=== PATIENT | female | born 1980 | race Caucasian/White ===

== ENCOUNTER → 2016-10-31 | Outpatient (CLI) | payer BC ==
--- NOTE | 2016-11-01 06:47 | CONS ---
DATE OF CONSULTATION: PCP is Dr. Yee. Psychiatrist is Dr. Mckenna. Reason for the evaluation is chronic sleepiness. This is a 36-year-old female patient coming in for complaints of sleepiness for the past couple of years. This sleep evaluation was suggested to her by a couple of doctors and recently she was seeing a psychiatrist Dr. Mckenna who referred this patient to sleep center to be investigated further. The patient has chronic depression and she has been on citalopram 20 mg p.o. q. day. She goes to bed around 10 p.m. wakes up at 6:30 a.m. in the morning. She snores and she is excessively fatigued and sleepy during the day. Her Glasgow is currently at 6. She can fall asleep at any time easily and typically takes a few minutes to fall asleep. She naps at least 2 to 3 hours in the afternoon after lunch. She is a stay at home mom. She has grinding of the teeth and she has grinding of her teeth extensively and she is not using any form of dental protection or bite guard. As such, she has history of bruxism. PAST MEDICAL HISTORY: Obesity bruxism, hypertension, depression, hyperlipidemia. SURGICAL HISTORY: Tubal ligation. Drug allergies are not known. Outpatient medication list includes: Citalopram, Lipitor and losartan. SOCIAL HISTORY: Nonsmoker. No history of alcoholism. No history of IV drugs. FAMILY HISTORY: Noncontributory. REVIEW OF SYSTEMS: Twelve-point review of systems was done. Positive findings were all mentioned above in the history of present illness. BP is 122/76, pulse is 79, respirations 18, temperature 99.9, saturation 98% on room air. Glasgow score is at 6. Neck size is 16-1/2. BMI is 42.3. GENERAL APPEARANCE: Calm, comfortable, obese. HEENT: Short neck. Crowding of posterior pharynx. There is no goiter or neck masses. LUNGS: Diminished breath sounds bilaterally otherwise clear. HEART: Sounds are distant, regular rate and rhythm. Normal S1, S2. ABDOMEN: Soft, nontender. No organomegaly. EXTREMITIES: No edema. No cyanosis or clubbing. IMPRESSIONS: 1. Chronic hypersomnia under investigation, rule out obstructive sleep apnea. 2. Obesity; body mass index of 42. 3. Bruxism. 4. Hypertension. 5. Depression. 6. Hyperlipidemia. PLAN: 1. Weight loss. 2. Encourage using a bite guard regarding her bruxism. 3. Proceed with a screening polysomnogram investigating this patient for obstructive sleep apnea. 4. Depression, treatment through Dr. Mckenna. 5. Will continue to follow.
== END ==
LOC: SLEEP 13:20
PROVIDERS: ATTEND Internal Medicine Critical Care Medicine
DX: G47.10 Hypersomnia, unspecified (principal); E66.9 Obesity, unspecified; I10 Essential (primary) hypertension; E78.5 Hyperlipidemia, unspecified; F32.9 Major depressive disorder, single episode, unspecified; G47.63 Sleep related bruxism; Z68.41 Body mass index [BMI] 40.0-44.9, adult
CPT/HCPCS: 99211

== ENCOUNTER → 2018-12-02 | Outpatient (CLI) | payer BC ==
--- NOTE | 2018-12-02 10:14 | MM ---
Reason for exam: screening (asymptomatic). Baseline mammogram. History: Family history of breast cancer in maternal grandmother at age 76. Physical Findings: Nurse did not find any significant physical abnormalities on exam. MG 3D Screening Mammo W/Cad Bilateral CC and MLO view(s) were taken. The breast tissue is heterogeneously dense. This may lower the sensitivity of mammography. Asymmetric density anterior left MLO view disperses on 3D. Diffuse round and punctate calcifications. Central and lateral nodularity middle and posterior depth respectively, persists on 3D. However, no clear correlate on MLO. Ultrasound recommended. These results were verbally communicated with the patient and result sheet given to the patient on 12/02/18. ASSESSMENT: Incomplete: need additional imaging evaluation, BI-RAD 0 RECOMMENDATION: Ultrasound of the right breast.
--- NOTE | 2018-12-02 10:17 | USB ---
Reason for exam: additional evaluation requested from abnormal screening. History: Family history of breast cancer in maternal grandmother at age 76. Physical Findings: Breast exam preformed at baseline screening. US Breast Workup RT Right complete breast ultrasound includes all four quadrants, the retroareolar region and axilla. Finding demonstrates a 3 x 2mm hypoechoic lesion at the axilla near redness involving the skin. Findings suggest a dermal lesion such as a tiny sebaceous cyst. No other solid or cystic lesion seen. These results were verbally communicated with the patient and result sheet given to the patient on 12/02/18. ASSESSMENT: Probably benign, BI-RAD 3 RECOMMENDATION: Follow-up diagnostic mammogram of the right breast in 6 months. Manage on a clinical basis with regard to skin lesion, possible inflammed sebaceous cyst right axilla.
== END | disposition home or self-care (01) ==
LOC: RADMAMWWP 08:11
PROVIDERS: ATTEND Obstetrics & Gynecology
DX: Z12.31 Encounter for screening mammogram for malignant neoplasm of breast (principal); R92.8 Other abnormal and inconclusive findings on diagnostic imaging of breast
CPT/HCPCS: 77063; 77067

== ENCOUNTER → 2019-06-11 | Outpatient (CLI) | payer BC ==
--- NOTE | 2019-06-11 14:46 | MM ---
Reason for exam: follow-up at short interval from prior study. Last mammogram was performed 6 months ago. History: Family history of breast cancer in maternal grandmother at age 76. Physical Findings: Nurse did not find any significant physical abnormalities on exam. MG 3D Diag Mammo W/Cad RT Spot compression CC and LM view(s) were taken of the right breast. Prior study comparison: December 02, 2018, bilateral MG 3d screening mammo w/cad. The breast tissue is heterogeneously dense. This may lower the sensitivity of mammography. Benign appearing calcifications in the right breast. Lateral right asymmetry 15cm from nipple persists on spot views. Dense tissue superiorly. Fatty tissue inferiorly. Upper outer quadrant ultrasound will be performed. These results were verbally communicated with the patient and result sheet given to the patient on 06/11/19. ASSESSMENT: Incomplete: need additional imaging evaluation, BI-RAD 0 RECOMMENDATION: Ultrasound of the right breast. (upper outer quadrant) Patient will come at another time for breast ultrasound.
== END | disposition home or self-care (01) ==
LOC: RADMAMWWP 12:55
PROVIDERS: ATTEND Obstetrics & Gynecology
DX: R92.8 Other abnormal and inconclusive findings on diagnostic imaging of breast (principal)
CPT/HCPCS: 77061; 77065

== ENCOUNTER → 2019-06-12 | Outpatient (CLI) | payer BC ==
--- NOTE | 2019-06-12 09:24 | USB ---
Reason for exam: additional evaluation requested from abnormal screening. History: Family history of breast cancer in maternal grandmother at age 76. US Breast Workup Limited RT Right limited breast ultrasound including focal area of concern, retroareolar and axilla demonstrates no cystic or solid lesion seen. These results were verbally communicated with the patient and result sheet given to the patient on 06/12/19. ASSESSMENT: Probably benign, BI-RAD 3 RECOMMENDATION: Follow-up diagnostic mammogram of the right breast in 6 months.
== END | disposition home or self-care (01) ==
LOC: RADUSWWP 08:06
PROVIDERS: ATTEND Obstetrics & Gynecology
DX: R92.8 Other abnormal and inconclusive findings on diagnostic imaging of breast (principal)

== ENCOUNTER → 2020-03-23 | Outpatient (CLI) | payer BC ==
--- NOTE | 2020-03-23 10:02 | MM ---
Reason for exam: additional evaluation requested from prior study. Last mammogram was performed 9 months ago. History: Family history of breast cancer in paternal aunt at age 60 and breast cancer in maternal grandmother at age 76. Took hormonal contraceptives beginning at age 22. Physical Findings: Nurse did not find any significant physical abnormalities on exam. MG 3D Diag Mammo W/Cad KATER[facility] Bilateral CC and MLO view(s) were taken. Prior study comparison: December 02, 2018, bilateral MG 3d screening mammo w/cad. The breast tissue is heterogeneously dense. This may lower the sensitivity of mammography. Finding: There are typically benign round, linear, diffuse/scattered and regional calcifications in both breasts. There is no discrete abnormality. These results were verbally communicated with the patient and result sheet given to the patient on 03/23/20. ASSESSMENT: Benign, BI-RAD 2 RECOMMENDATION: Routine screening mammogram of both breasts in 1 year.
== END | disposition home or self-care (01) ==
LOC: RADMAMWWP 09:01
PROVIDERS: ATTEND Obstetrics & Gynecology
DX: R92.8 Other abnormal and inconclusive findings on diagnostic imaging of breast (principal)
CPT/HCPCS: 77062; 77066

== ENCOUNTER → 2021-04-28 | Outpatient (CLI) | payer BC ==
--- NOTE | 2021-04-29 11:39 | MM ---
Reason for exam: screening (asymptomatic). Last mammogram was performed 1 year and 1 month ago. History: Family history of breast cancer in maternal grandmother at age 76. Took hormonal contraceptives for 9 years beginning at age 22. Taking estrogen. Taking progesterone. Physical Findings: A clinical breast exam by your physician is recommended on an annual basis and results should be correlated with mammographic findings. MG 3D Screening Mammo W/Cad Bilateral CC, MLO, and XCCL view(s) were taken. Prior study comparison: March 23, 2020, bilateral MG 3d diag mammo w/cad [facility]. June 11, 2019, right breast MG 3d diag mammo w/cad RT. Benign appearing bilateral calcifications. There are grouped calcifications in the right upper outer quadrant. ASSESSMENT: Incomplete: need additional imaging evaluation, BI-RAD 0 RECOMMENDATION: Special view mammogram of the right breast. [facility] will attempt to contact patient to return for supplemental views.
== END | disposition home or self-care (01) ==
LOC: RADMAMWWP 09:15
PROVIDERS: ATTEND Obstetrics & Gynecology
DX: Z12.31 Encounter for screening mammogram for malignant neoplasm of breast (principal); Z80.3 Family history of malignant neoplasm of breast
CPT/HCPCS: 77063; 77067

== ENCOUNTER → 2021-05-02 | Outpatient (CLI) | payer BC ==
--- NOTE | 2021-05-03 13:33 | MM ---
Reason for exam: additional evaluation requested from abnormal screening. Last mammogram was performed less than 1 month ago. History: Family history of breast cancer in maternal grandmother at age 76. Took hormonal contraceptives for 1 year. Taking estrogen for 8 months. Taking progesterone for 8 months. Physical Findings: Nurse did not find any significant physical abnormalities on exam. MG 3D Work Up W/Cad RT CC with magnification, ML with magnification, and ML view(s) were taken of the right breast. Prior study comparison: April 28, 2021, bilateral MG 3d screening mammo w/cad. March 23, 2020, bilateral MG 3d diag mammo w/cad [facility]. No significant new findings when compared with previous films. These results were verbally communicated with the patient and result sheet given to the patient on 05/02/21. ASSESSMENT: Benign, BI-RAD 2 RECOMMENDATION: Return to routine screening mammogram schedule for both breasts.
== END | disposition home or self-care (01) ==
LOC: RADMAMWWP 08:13
PROVIDERS: ATTEND Obstetrics & Gynecology
DX: R92.8 Other abnormal and inconclusive findings on diagnostic imaging of breast (principal); Z80.3 Family history of malignant neoplasm of breast
CPT/HCPCS: 77061; 77065

== ENCOUNTER → 2021-08-22 | Outpatient (CLI) | payer BC ==
--- NOTE | 2021-08-22 11:25 | ECHOF ---
Referral Reason:R94.31 MEASUREMENTS -------- HEIGHT: 160.0 cm WEIGHT: 108.9 kg BP: RVIDd: 2.9 cm (< 3.3) IVSd: 1.1 cm (0.6 - 1.1) LVIDd: 3.1 cm (3.9 - 5.3) LVPWd: 1.3 cm (0.6 - 1.1) IVSs: 1.7 cm LVIDs: 2.1 cm LVPWs: 1.9 cm Ao Diam: 2.5 cm (2.0 - 3.7) AV Cusp: 1.9 cm (1.5 - 2.6) LA Diam: 3.8 cm (2.7 - 3.8) MV EXCURSION: 8.330 mm (> 18.000) MV EF SLOPE: 36 mm/s (70 - 150) EPSS: 1.1 cm MV E Jace: 0.97 m/s MV DecT: 205 ms MV A Jace: 0.81 m/s MV E/A Ratio: 1.20 RAP: 5.00 mmHg RVSP: 12.99 mmHg FINDINGS -------- This was a technically adequate study. The left ventricular size is normal. Left ventricular wall thickness is normal. Overall left vent ricular systolic function is low-normal with, an EF between 50 - 55 %. The right ventricle is normal in size. The left atrial size is normal. The right atrial size is normal. The aortic valve is trileaflet and appears structurally normal. The mitral valve is normal. There is trace mitral regurgitation. The tricuspid valve appears structurally normal. Trace tricuspid regurgitation present. Right jesse tricular systolic pressure is normal at < 35 mmHg. There is no pulmonic regurgitation present. The aortic root size is normal. IVC Not well visulized. There is no pericardial effusion. CONCLUSIONS -------- 1. The left ventricular size is normal. 2. Left ventricular wall thickness is normal. 3. Overall left ventricular systolic function is low-normal with, an EF between 50 - 55 %. 4. There is trace mitral regurgitation. 5. Trace tricuspid regurgitation present. 6. There is no pericardial effusion. DERMATOLOGIST: Patricia Patel RDCS
== END | disposition home or self-care (01) ==
LOC: RADECHMAIN 08:05
PROVIDERS: ATTEND Family Medicine
DX: I08.1 Rheumatic disorders of both mitral and tricuspid valves (principal)
CPT/HCPCS: 93306

== ENCOUNTER → 2023-11-16 | Outpatient (CLI) | payer BC ==
--- NOTE | 2023-11-19 08:35 | MM ---
Reason for Exam: Screening (asymptomatic). Last mammogram was performed 1 year(s) and 1 month(s) ago. Patient History: Menarche at age 9. First Full-Term at age 26. Currently using Estrogen, starting at age 40. Currently using Progesterone, starting at age 40. Hormonal Contraceptives for 1 year until age 31. Maternal grandmother had breast cancer, age 76. Risk Values: Pema 5 year model risk: 0.9%. NCI Lifetime model risk: 11.7%. Prior Study Comparison: 04/28/2021 Bilateral Screening Mammogram, [facility]. 05/02/2021 Right Diagnostic Mammogram, [facility]. 09/28/2022 Bilateral MG 3D screening mammo w/cad, [facility]. Tissue Density: The breasts are heterogeneously dense, which may obscure small masses. Findings: Analyzed By CAD. Right breast: There is no suspicious group of microcalcifications or new suspicious mass. Left breast: There is no suspicious group of microcalcifications or new suspicious mass. Overall Assessment: Negative, BI-RAD 1 Management: Screening Mammogram of both breasts in [address] [facility] will attempt to contact patient to return for supplemental views and ultrasound if indicated. Patient should continue monthly self-breast exams. A clinical breast exam by your physician is recommended on an annual basis. This exam should not preclude additional follow-up of suspicious palpable abnormalities. Note on Pema scores and lifetime risk: 1. A Pema score greater than 3% is considered moderate risk. If this is the case, consider specialist referral to assess eligibility for a risk reducing agent. 2. If overall lifetime risk for the development of breast cancer is 20% or higher, the patient may qualify for future screening with alternating mammogram and breast MRI. Electronically signed and approved by: Gal Pascal DO
== END | disposition home or self-care (01) ==
LOC: RADMAMWWP 10:59
PROVIDERS: ATTEND Obstetrics & Gynecology
DX: Z12.31 Encounter for screening mammogram for malignant neoplasm of breast (principal); Z80.3 Family history of malignant neoplasm of breast
CPT/HCPCS: 77063; 77067

== ENCOUNTER 2025-02-01 15:10 | Emergency (ER) | payer BC ==
--- NOTE | 2025-02-01 16:44 | ED ---
Skin/Abscess/FB HPI - General Chief complaint: Skin/Abscess/Foreign Body Stated complaint: Lump on L sided chest Time Seen by Provider: 02/01/25 16:36 Source: patient, RN notes reviewed Mode of arrival: ambulatory Limitations: no limitations - History of Present Illness Initial comments: 44-year-old female sent from urgent care for swollen lymph node in the left chest x 1 day. States she woke up yesterday and noticed the lump above her collarbone. States it is the size of a ping-pong ball. Endorses mild tenderness to the touch. Denies sore throat, difficulty breathing or swallowing, chest pain, shortness of breath, abdominal pain, fevers. States at urgent care they diagnosed her with Virchow's node and sent her to the ER for further evaluation. Patient states she has a history of hypertension and high cholesterol. No other significant medical history. - Related Data Home Medications Medication Instructions Recorded Confirmed FLUoxetine HCL [PROzac] 40 mg PO DAILY 02/02/15 02/02/15 clonazePAM [KlonoPIN] 0.5 mg PO HS 02/02/15 02/02/15 Previous Rx's Medication Instructions Recorded FLUoxetine HCL [PROzac] 40 mg PO DAILY cap 02/04/15 clonazePAM [KlonoPIN] 0.5 mg PO HS tab 02/04/15 Allergies Allergy/AdvReac Type Severity Reaction Status Date / Time No Known Allergies Allergy Verified 02/01/25 15:15 Review of Systems ROS Statement: Those systems with pertinent positive or pertinent negative responses have been documented in the HPI. ROS Other: All systems not noted in ROS Statement are negative. Past Medical History Past Medical History: No Reported History Additional Past Medical History / Comment(s): Right hip bursitis History of Any Multi-Drug Resistant Organisms: None Reported Past Surgical History: Tonsillectomy, Tubal Ligation Additional Past Surgical History / Comment(s): tubal ligation 2012, ingrown toenail removal Past Anesthesia/Blood Transfusion Reactions: No Reported Reaction Past Psychological History: Anxiety, Depression Smoking Status: Never smoker Past Alcohol Use History: None Reported Past Drug Use History: None Reported - Past Family History Father Additional Family Medical History / Comment(s): Dad is age 56 with history of gout and alcoholism. Patient does not know him very well. mother is age 53 had early hysterectomy for dysfunctional uterine bleeding General Exam Limitations: no limitations General appearance: alert, in no apparent distress Head exam: Present: atraumatic, normocephalic, normal inspection Eye exam: Present: normal appearance, PERRL, EOMI. Absent: scleral icterus, conjunctival injection, periorbital swelling ENT exam: Present: normal exam, mucous membranes moist Neck exam: Present: lymphadenopathy (Enlarged, ping-pong ball sized left sided supraclavicular lymph node with no overlying skin changes, mild tenderness to palpation). Absent: normal inspection, tenderness, meningismus Respiratory exam: Present: normal lung sounds bilaterally. Absent: respiratory distress, wheezes, rales, rhonchi, stridor Cardiovascular Exam: Present: regular rate, normal rhythm, normal heart sounds. Absent: systolic murmur, diastolic murmur, rubs, gallop, clicks GI/Abdominal exam: Present: soft, normal bowel sounds. Absent: distended, tenderness, guarding, rebound, rigid Neurological exam: Present: alert, oriented X3 Psychiatric exam: Present: normal affect, normal mood Skin exam: Present: warm, dry, intact, normal color. Absent: rash Course Vital Signs 02/01/25 02/01/25 15:12 19:17 Temperature 98.7 F 98.5 F Pulse Rate 99 84 Respiratory 18 16 Rate Blood Pressure 164/101 135/75 O2 Sat by Pulse 98 97 Oximetry Medical Decision Making - Medical Decision Making Was pt. sent in by a medical professional or institution ([facility], [employer], urgent care, hospital, or half-way...) When possible be specific @ -Sent from [facility] urgent care for further evaluation regarding Virchow node Did you speak to anyone other than the patient for history (EMS, parent, family, police, friend...)? What history was obtained from this source @ -No Did you review nursing and triage notes (agree or disagree)? Why? @ -I reviewed and agree with nursing and triage notes Were old charts reviewed (outside hosp., previous admission, EMS record, old EKG, old radiological studies, urgent care reports/EKG's, half-way records)? Report findings @ -No old charts were reviewed Differential Diagnosis (chest pain, altered mental status, abdominal pain women, abdominal pain men, vaginal bleeding, weakness, fever, dyspnea, syncope, headache, dizziness, GI bleed, back pain, seizure, CVA, palpatations, mental health, musculoskeletal)? @ -Virchow node, lymphadenopathy, viral infection, bacterial infection EKG interpreted by me (3pts min.). @ -None X-rays interpreted by me (1pt min.). @ -None done CT interpreted by me (1pt min.). @ -CT neck and chest shows soft tissue left lower neck area of palpable abnormality measuring 30 x 15 x 24 cm. Indeterminate lesion in the liver U/S interpreted by me (1pt. min.). @ -None done What testing was considered but not performed or refused? (CT, X-rays, U/S, labs)? Why? @ -None What meds were considered but not given or refused? Why? @ -None Did you discuss the management of the patient with other professionals (professionals i.e. , PA, [employer], lab, RT, psych nurse, socially responsible investment adviser, supervisor phosphatic fertilizer, teacher, staff electronic warfare officer, case management coordinator)? Give summary @ -No Was smoking cessation discussed for >3mins.? @ -No Was critical care preformed (if so, how long)? @ -No Were there social determinants of health that impacted care today? How? (Homelessness, low income, unemployed, alcoholism, drug addiction, transpo rtation, low edu. Level, literacy, decrease access to med. care, shelter, rehab)? @ -No Was there de-escalation of care discussed even if they declined (Discuss DNR or withdrawal of care, Hospice)? DNR status @ -No What co-morbidities impacted this encounter? (DM, HTN, Smoking, COPD, CAD, Cancer, CVA, ARF, Chemo, Hep., AIDS, mental health diagnosis, sleep apnea, morbid obesity)? @ -None Was patient admitted / discharged? Hospital course, mention meds given and route, prescriptions, significant lab abnormalities, going to OR and other pertinent info. @ -Discharge. 44-year-old female sent from urgent care for virchow node x 1 day. There is a left-sided palpable supraclavicular mass on examination. Lab work largely unremarkable. CT neck and chest shows soft tissue left lower neck area of palpable abnormality measuring 30 x 15 x 24 cm with indeterminate lesion in the liver. Discussed findings with patient. Discussed virchow node is a finding that is highly suspicious for malignant carcinoma and patient must follow-up for further testing of the lymph node including biopsy. Advised to follow-up with Dr. Yee tomorrow morning to schedule biopsy. Appropriate return precautions discussed. Case was discussed with my ED attending Dr. Taylor Undiagnosed new problem with uncertain prognosis? @ -No Drug Therapy requiring intensive monitoring for toxicity (Heparin, Nitro, Insulin, Cardizem)? @ -No Were any procedures done? @ -No Diagnosis/symptom? @ -Virchow node Acute, or Chronic, or Acute on Chronic? @ -Acute Uncomplicated (without systemic symptoms) or Complicated (systemic symptoms)? @ -Uncomplicated Side effects of treatment? @ -No Exacerbation, Progression, or Severe Exacerbation? @ -No Poses a threat to life or bodily function? How? (Chest pain, USA, PA, pneumonia, PE, COPD, DKA, ARF, appy, cholecystitis, CVA, Diverticulitis, Homicidal, Suicidal, threat to staff... and all critical care pts) @ -Possibly-May be related to malignant carcinoma - Lab Data Result diagrams: 02/01/25 16:34 02/01/25 16:34 Lab Results 02/01/25 02/01/25 Range/Units 16:34 16:34 WBC 8.22 (4.50-10.00) 10*3/uL RBC 4.68 (4.10-5.20) 10*6/uL Hgb 12.5 (12.0-15.0) g/dL Hct 37.8 (37.2-46.3) % MCV 80.8 (80.0-97.0) fL MCH 26.7 L (27.0-32.0) pg MCHC 33.1 (32.0-37.0) g/dL Plt Count 286 (140-440) 10*3/uL MPV 9.0 L (9.5-12.2) fL Immature Gran % (Auto) 0.6 % Neutrophils % 63.3 % Lymphocytes % 23.5 % Monocytes % 9.2 % Eosinophils % 2.8 % Basophils % 0.6 % Immature Gran # 0.05 H (0.00-0.04) 10*3/uL Neutrophils # 5.20 (1.80-7.70) 10*3/uL Lymphocytes # 1.93 (0.90-5.00) 10*3/uL Monocytes # 0.76 (0.20-1.00) 10*3/uL Eosinophils # 0.23 (0.04-0.35) 10*3/uL Basophils # 0.05 (0.00-0.10) 10*3/uL Sodium 135 L (137-145) mmol/L Potassium 3.6 (3.5-5.1) mmol/L Chloride 98 (98-107) mmol/L Carbon Dioxide 27 (22-30) mmol/L Anion Gap 10 mmol/L BUN 13 (7-17) mg/dL Creatinine 0.61 (0.52-1.04) mg/dL Est GFR (CKD-EPI)AfAm >90 (>60 ml/min/1.73 sqM) Est GFR (CKD-EPI)NonAf >90 (>60 ml/min/1.73 sqM) Glucose 89 (74-99) mg/dL Calcium 9.7 (8.4-10.2) mg/dL Total Bilirubin 0.4 (0.2-1.3) mg/dL AST 28 (14-36) U/L ALT 22 (4-34) U/L Alkaline Phosphatase 126 (38-126) U/L Total Protein 7.1 (6.3-8.2) g/dL Albumin 4.1 (3.5-5.0) g/dL Disposition Clinical Impression: Virchow node Disposition: HOME SELF-CARE Condition: Stable Instructions (If sedation given, give patient instructions): Lymphadenopathy (E D) Additional Instructions: Please follow-up with Dr. Yee tomorrow as discussed. You will need further testing of the lymph node including a biopsy. Please return to the Emergency Department if symptoms worsen or any other concerns. Is patient prescribed a controlled substance at d/c from ED?: No Referrals: Jame Yee MD [Primary Care Provider] - 1-2 days Time of Disposition: 19:07
[2025-02-01 17:10] LABS: Basophils # (A) 0.05 10*3/uL (0.00-0.10); Basophils % (A) 0.6 %; Eosinophils # (A) 0.23 10*3/uL (0.04-0.35); Eosinophils % (A) 2.8 %; HCT 37.8 % (37.2-46.3); HGB 12.5 g/dL (12.0-15.0); Lymphocytes # (A) 1.93 10*3/uL (0.90-5.00); Lymphocytes % (A) 23.5 %; MCH 26.7 pg (27.0-32.0); MCHC 33.1 g/dL (32.0-37.0); MCV 80.8 fL (80.0-97.0); Monocytes # (A) 0.76 10*3/uL (0.20-1.00); Monocytes % (A) 9.2 %; Neutrophils # (A) 5.20 10*3/uL (1.80-7.70); Neutrophils % (A) 63.3 %; Platelet Count 286 10*3/uL (140-440); RBC 4.68 10*6/uL (4.10-5.20); RDW 15.5 % (11.5-14.5); WBC 8.22 10*3/uL (4.50-10.00)
[2025-02-01 17:33] LABS: ALT 22 U/L (4-34); AST 28 U/L (14-36); African American GFR (CKD) >90 (>60 ml/min/1.73 sqM); Albumin 4.1 g/dL (3.5-5.0); Alkaline Phosphatase 126 U/L (38-126); Anion Gap 10 mmol/L; Blood Urea Nitrogen 13 mg/dL (7-17); Calcium 9.7 mg/dL (8.4-10.2); Carbon Dioxide 27 mmol/L (22-30); Chloride 98 mmol/L (98-107); Glucose 89 mg/dL (74-99); Non-African American GFR(CKD) >90 (>60 ml/min/1.73 sqM); Potassium 3.6 mmol/L (3.5-5.1); Sodium 135 mmol/L (137-145); Total Protein 7.1 g/dL (6.3-8.2)
--- NOTE | 2025-02-01 18:30 | CT ---
EXAMINATION TYPE: CT neck chest w con DATE OF EXAM: 02/01/2025 5:55 PM COMPARISON: None. CLINICAL INDICATION: Female, 44 years old with history of Virchow node;, LEFT SIDE SWELLING JUST ABOV E CLAVICLE palpable mass. TECHNIQUE: Standard enhanced CT of the neck and chest. Axial sections with coronal and sagittal refo rmats were obtained. Contrast used:100 ml mL of with IV Contrast, (none if empty) Oral contrast used: (none if empty) CT DLP: 1249.6 mGycm, Automated exposure control for dose reduction was used. FINDINGS: Brain: Visualized portions are grossly unremarkable. Orbits: Unremarkable Sinuses: Grossly unremarkable. Spaces of the neck: Left lower neck mass as described above measuring 30 x 15 x 24 mm Musculoskeletal: No acute osseous pathology. Lymph nodes: Multiple nonenlarged lymph nodes are seen along both anterior chains of the neck. Vascular structures: Visualized major arteries are patent without evidence of aneurysm. Thoracic Inlet/airway: Airway is patent. The lung apices are clear. Soft tissues/Thyroid: Thyroid and remainder of the soft tissues are unremarkable. Other: none. LUNGS/ PLEURA: The lung parenchyma appears unremarkable. AIRWAY: Patent and unremarkable. HEART: Size within normal limits. No significant coronary artery calcifications. MEDIASTINUM: No gross evidence of adenopathy. VASCULATURE: No aortic aneurysm. MUSCULOSKELETAL: No acute osseous abnormalities SOFT TISSUES/LYMPH NODES: Soft tissue mass correlates with the area of palpable abnormality measuring 30 x 15 x 24 mm. No enlarged left axillary lymph nodes visualized. No other enlarged lymph nodes by CT criteria identified. LOWER NECK: No significant findings. UPPER ABDOMEN: Indeterminate right hepatic lobe segment 4A/8 16 mm hypodense lesion. IMPRESSION: 1. Soft tissue mass correlates with the area of palpable abnormality measuring 30 x 15 x 24 mm. No o ther enlarged lymph nodes by CT criteria identified. Further workup with tissue sampling recommended. 2. Indeterminate lesion in the liver liver mass protocol MRI recommended for complete characterizati on. [facility], , 02/01/2025 6:27 PM
[2025-02-01 19:31] VITALS: BP 135/75; PULSE 84; RESP 16; TEMP 98.5
== END 2025-02-01 19:17 | disposition home or self-care (01) ==
LOC: EC 15:10
DX: R59.9 Enlarged lymph nodes, unspecified (principal)
CPT/HCPCS: 36415; 80053; 85025; 70491; 71260; 99283; Q9967